=== PATIENT | female | born 1970 | race Caucasian/White ===

== ENCOUNTER 2019-03-24 16:13 | Emergency (ER) | payer OTHER ==
[2019-03-24 16:51] VITALS: BP 118/69
[2019-03-24] MEDS ORDERED: Morphine 10 MG/ML VIAL (1 ml) IV ONE (16:56)
--- NOTE | 2019-03-24 17:01 | UC ---
Upper Extremity HPI - HPI Summary HPI Summary: Patient is a 49-year-old female here after a horse accident. Patient's playing in a polo tournament when she fell off her horse landing on her left shoulder and right wrist. Patient had no loss of consciousness and did not hit her head. Patient has no chest pain, shortness of breath, abdominal pain, lower extremity pain. Patient was ambulatory on scene. patient's pain is in her right wrist and left shoulder. Patient does have some tingling in her right thumb. Accident occurred roughly 1.5 hours ago. Medications reviewed - History of Current Complaint Chief Complaint: UCUpperExtremity Stated Complaint: SP FALL-RT WRIST INJURY, LEFT COLLARBONE INJURY Time Seen by Provider: 03/24/19 16:37 Hx Last Menstrual Period: this week Onset/Duration: Sudden Onset Severity Initially: Severe Severity Currently: Severe Pain Intensity: 7 - Allergies/Home Medications Allergies/Adverse Reactions: Allergies Allergy/AdvReac Type Severity Reaction Status Date / Time bee venom protein (honey bee) Allergy Anaphylatic Verified 03/24/19 16:43 Shock Home Medications: Home Medications Epi Pen 1 dose INJ ONCE PRN 03/24/19 [History Confirmed 03/24/19] Ibuprofen TAB* [Motrin TAB* 600 MG] 600 mg PO Q6H PRN 03/24/19 [History Confirmed 03/24/19] PMH/Surg Hx/FS Hx/Imm Hx Previously Healthy: Yes - Surgical History Surgical History: None Surgery Procedure, Year, and Place: right great toe dislocation 1992 - Family History Known Family History: Positive: Non-Contributory - Social History Alcohol Use: Occasionally Substance Use Type: None Smoking Status (MU): Never Smoked Tobacco Review of Systems All Other Systems Reviewed And Are Negative: Yes Constitutional: Negative: Fever, Chills Eyes: Negative: Blurred Vision, Diplopia ENT: Negative: Dental Pain, Sore Throat Respiratory: Negative: Shortness Of Breath Cardiovascular: Negative: Chest Pain Gastrointestinal: Negative: Abdominal Pain Genitourinary: Negative: Hematuria Neurological: Negative: Headache Physical Exam - Summary Physical Exam Summary: Vital Signs Reviewed: Yes A+Ox3, no distress. Sitting in a wheelchair Eyes: Conjunctiva Clear, PERRL. EOM intact and full ENT: Hearing grossly normal TM x 2 clear, moist, uvula midline, no exudate, no erythema Neck: Positive: Supple Respiratory: Positive: No respiratory distress, No accessory muscle use + CTA throughout no w/r Cardiovascular: RRR nl s1, s2 no m/r CBT <2 sec abd soft + BS nt/nd no guarding, no distension Musculoskeletal Exam: No lower extremity tenderness or deformity. Tenderness at the left shoulder at the lateral aspect of the clavicle. No obvious deformity. Deltoid sensation intact. Radial pulse 2+. No distal tenderness. On the right wrist, patient has a deformity at the radius. No proximal tenderness or deformity. Patient has neurovascular intactness distally. Radial pulse 2+. Neurological: Positive: Alert, + sensation throughout Psychological: Positive: Normal Response To Family Skin: Positive: no rash, no ecchymosis Triage Information Reviewed: Yes Vital Signs: Initial Vital Signs Temp 99.3 F 03/24/19 16:36 Pulse 59 03/24/19 16:36 Resp 18 03/24/19 16:36 BP 118/69 03/24/19 16:36 Pulse Ox 98 03/24/19 16:36 Procedures - Splinting Right Upper Extremity Hand-Made Type: orthoglass Splint: sugar-tong Pre-Proc Neuro Vasc Exam: normal Post-Proc Neuro Vasc Exam: normal Upper Extremity Course/Dx - Course Course Of Treatment: Patient is here after a horse accident. On arrival, patient was overall well- appearing with stable vital signs. Patient had tenderness in her left shoulder and right wrist with no other evidence of any injuries. Patient had an x-ray which showed a midshaft left clavicular fracture and a distal right radius fracture. Patient's radius fracture did not need reduction. Patient was placed in a splint. Patient is from [place] and was encouraged to find an orthopedic surgeon in her hometown and call them tomorrow. - Differential Dx/Diagnosis Differential Diagnosis/HQI/PQRI: Contusion, Fracture (Open), Fracture (Closed), Hematoma, Strain, Sprain Provider Diagnosis: Animal-rider injured by fall from or being thrown from horse in noncollision accident, initial encounter, Right radial fracture, Closed left clavicular fracture Discharge - Sign-Out/Discharge Documenting (check all that apply): Patient Departure All imaging exams completed and their final reports reviewed: Yes - Discharge Plan Condition: Improved Disposition: HOME Prescriptions: traMADol TAB* [Ultram*] 50 mg PO Q6HR PRN #20 tab MDD 200 mg PRN Reason: Pain Patient Education Materials: Clavicle Fracture (ED), Wrist Fracture in Adults ( ED) Referrals: No Primary Care Phys,NOPCP [Primary Care Provider] - Additional Instructions: Please take Motrin as needed for pain. please take your prescribed pain medication if Motrin is not working Please find an orthopedic surgeon in [place] and make an appointment as soon as possible. Please return immediately if you have: Shortness of breath Numbness or tingling in her fingers Extreme pain in your wrist Blue fingers - Billing Disposition and Condition Condition: IMPROVED Disposition: Home
== END 2019-03-24 18:59 | disposition home or self-care (01) ==
LOC: UCCORT 16:13
DX: S52.111A Torus fracture of upper end of right radius, initial encounter for closed fracture (principal); S42.022A Displaced fracture of shaft of left clavicle, initial encounter for closed fracture; V80.010A Animal-rider injured by fall from or being thrown from horse in noncollision accident, initial encounter; Y93.52 Activity, horseback riding; Y92.328 Other athletic field as the place of occurrence of the external cause
CPT/HCPCS: 25605; 71045; 96374; 99203; G0463; J2270